=== PATIENT | female | born 1980 | race American Indian/Alaskan Native ===

== ENCOUNTER 2017-05-12 20:53 | Inpatient (IN) | payer MEDICAID ==
[2017-05-12] MEDS ORDERED: Sodium Chloride 0.9% 1,000 ML IV ONE (21:19)
--- NOTE | 2017-05-12 21:21 | C.PDOC ---
History Of Present Illness 36 yo female, no prior hx, presents wtih abdominal pain/shoemaker/n/v. as per pt, started 3 hours ago. no fevers, no urianry changes, pt states she has irregular periods. pain worse to suprpubic region. Time Seen by Provider: 05/12/17 21:15 Chief Complaint (Nursing): Abdominal Pain Past Medical History Reviewed: Historical Data, Nursing Documentation, Vital Signs Vital Signs: Last Vital Signs Temp 97.4 F L 05/13/17 07:00 Pulse 61 05/13/17 07:00 Resp 20 05/13/17 07:00 BP 110/66 05/13/17 07:00 Pulse Ox 99 05/13/17 07:00 Family History: States: Unknown Family Hx - Social History Hx Alcohol Use: No Hx Substance Use: No - Immunization History Hx Tetanus Toxoid Vaccination: No Hx Influenza Vaccination: No Hx Pneumococcal Vaccination: No Review Of Systems Except As Marked, All Systems Reviewed And Found Negative. Gastrointestinal: Positive for: Nausea, Vomiting, Abdominal Pain Neurological: Positive for: Headache Physical Exam - Physical Exam Appears: Well, No Acute Distress, Other (on phone in nad) Skin: Normal Color, Warm, Dry Eye(s): bilateral: Normal Inspection, PERRL, EOMI Nose: Normal Throat: Normal Neck: Normal Cardiovascular: Rhythm Regular Respiratory: Normal Breath Sounds Gastrointestinal/Abdominal: Normal Exam, Soft, Tenderness (mild), No Guarding, No Rebound Back: Normal Inspection Extremity: Normal ROM Neurological/Psych: Oriented x3, Normal Speech, Normal Cognition, Normal Cranial Nerves, No Cerebellar Signs, Normal Motor, Normal Sensation ED Course And Treatment - Laboratory Results Result Diagrams: 05/12/17 21:36 05/12/17 21:36 O2 Sat by Pulse Oximetry: 100 (RA) Pulse Ox Interpretation: Normal - CT Scan/US CT Abd with contrast Other Rad Studies (CT/US): Interpreted By Me, Read By Radiologist CT/US Interpretation: EXAM: CT Abdomen and Pelvis With Intravenous Contrast. CLINICAL HISTORY: 36 years old, female; Pain; Abdominal pain; Flank; Left lower quadrant (llq); Additional info: Lower. abd pain. TECHNIQUE: Axial computed tomography images of the abdomen and pelvis with intravenous contrast. This CT. exam was performed using one or more of the following dose reduction techniques: automated. exposure control, adjustment of the mA and/or kV according to patient size, and/or use of iterative. reconstruction technique. Coronal and sagittal reformatted images were created and reviewed. CONTRAST: 100 mL of visipaque 320 administered intravenously. EXAM DATE/TIME: Exam ordered 05/12/2017 9:54 PM. COMPARISON: No relevant prior studies available. FINDINGS: Lower thorax: No acute findings. ABDOMEN: Liver: Unremarkable. No mass. Gallbladder and bile ducts: Unremarkable. No calcified stones. No ductal dilation. Pancreas: Unremarkable. No mass. No ductal dilation. Spleen: Unremarkable. No splenomegaly. Adrenals: Unremarkable. No mass. Kidneys and ureters: As seen in series 3 image 143, there is a 4 mm left pelvic calculus. questionably at the left ureterovesical junction, and correlation to evaluate for possible. renal/genitourinary causes of symptoms suggested. However, there is no hydronephrosis in either. kidney. No other findings suspicious for ureteral stones are seen noting that punctate stones or. noncalcified stones may not be well seen on CT. There is an incidental finding of compression of the. left renal vein as it passes posterior to the superior mesenteric artery. The bladder is questionably. slightly thickwalled, please correlate for urinary tract infection. Stomach and bowel: There are no findings to suggest bowel obstruction. Fluid-filled normal caliber. small bowel is seen, this is a nonspecific finding but can sometimes reflect an enteritis. There is. formed fecal content in the colon. The colon is largely collapsed. Paucity of abdominal fat and pelvic. ascites do somewhat limit evaluation for possibility of diverticulitis with no specific findings that would. suggest acute diverticulitis. Appendix: No findings to suggest acute appendicitis. PELVIS: Bladder: See above. Reproductive: There are cystic findings in the left adnexa including possibly 2 rim-enhancing. findings. These are likely functional but may contribute to the patient's symptoms. As is true for all. female patients of reproductive age, correlation with beta hCG and consideration of gynecologic. causes of symptoms is recommended. ABDOMEN and PELVIS: Intraperitoneal space: There is moderate pelvic ascites, favored to be increased above typical for a. female patient of reproductive age. Bones/ joints: No acute fracture. No dislocation. Soft tissues: Unremarkable. Vasculature: See above. Lymph nodes: Unremarkable. No enlarged lymph nodes. IMPRESSION: As is true for all female patients of reproductive age, correlation with beta hCG and consideration of. gynecologic causes of symptoms is recommended. In particular, pelvic ascites and presence of. multiple likely functional findings in the left adnexa which may relate to the patient's symptoms. Questionable genitourinary findings, correlation for infection and possibility of left ureteral calculus. suggested. Medical Decision Making Medical Decision Making: r/o uti, viral syndrome. pt well appearing, neuro intact. no thunderclap features . labs pending. 950: noted anemia. pt denies vb or rectal bleeding. refuses rectal exm. 1110: vrad reading shows possible 4mm uvj stone. pt with persistent pain. urine shows likely infection. case discussed with dr baer, requests admission. pt may need urology eval/intervention as pt with infected stone. Disposition - Disposition Disposition: HOSPITALIZED Disposition Time: 23:20 Condition: STABLE - Clinical Impression Clinical Impression: UTI (urinary tract infection), Kidney stone, Anemia Decision To Admit - Pt Status Changed To: Hospital Disposition Of: Inpatient - Admit Certification Admit to Inpatient:: After my assessment, the patient will require hospitalization for at least two midnights. This is because of the severity of symptoms shown, intensity of services needed, and/or the medical risk in this patient being treated as an outpatient. - InPatient: Physician Admission Certification:: pt with uti and kidney stone. will need eval for passage of stone. - . Bed Request Type: Regular Admitting Physician: Eddie Baer Patient Diagnosis: UTI (urinary tract infection), Kidney stone, Anemia
[2017-05-12] MEDS ORDERED: Sodium Chloride 0.9% 1,000 ML ONE (21:40)
[2017-05-12 21:41] LABS: BASO # 0.1 K/uL (0.0-0.2); BASO % 1.2 % (0.0-2.0); EOS # 0.1 K/uL (0.0-0.7); EOS % 1.3 % (0.0-4.0); HEMOGLOBIN 9.7 g/dL (11.0-16.0); LYMPH # 1.6 K/uL (1.0-4.3); LYMPH % 20.5 % (20.0-40.0); MEAN CELL VOLUME 66.6 fL (81.0-99.0); MEAN CORPUSCULAR HEMOGLOBIN 20.6 pg (27.0-31.0); MEAN CORPUSCULAR HGB CONC 30.9 g/dL (33.0-37.0); MEAN PLATELET VOLUME 9.1 fL (7.2-11.7); MONO # 0.7 K/uL (0.0-0.8); MONO % 9.2 % (0.0-10.0); NEUT # 5.3 K/uL (1.8-7.0); NEUT % 67.8 % (50.0-75.0); NRBC % 0.1 % (0.0-2.0); RBC 4.73 Mil/uL (3.80-5.20); WHITE BLOOD COUNT 7.8 K/uL (4.8-10.8)
[2017-05-12 21:48] LABS: ALBUMIN 3.9 g/dL (3.5-5.0); PROTHROMBIN TIME 11.4 SECONDS (9.7-12.2)
[2017-05-12 21:51] LABS: ALB/GLOB RATIO 1.1 (1.0-2.1); AST/SGOT 19 U/L (14-36); BLOOD UREA NITROGEN 9 mg/dL (7-17); GFR AFRICAN-AMERICAN > 60; GFR NON-AFRICAN AMERICAN > 60
[2017-05-12 21:52] LABS: ALT/SGPT 10 U/L (9-52); CALCIUM 8.7 mg/dl (8.6-10.4); LIPASE 70 U/L (23-300)
[2017-05-12 21:53] LABS: HCG,QUALITATIVE URINE NEGATIVE (NEGATIVE)
[2017-05-12] MEDS ORDERED: Iodixanol 320 MG/ML 100 ML BOTTLE IV ONE (22:02)
[2017-05-12 22:03] LABS: SQUAMOUS EPITHIAL 40 /hpf (0-5); URINE BACTERIA FEW (<OCC); URINE BILIRUBIN NEGATIVE (NEGATIVE); URINE CLARITY Hazy (Clear); URINE COLOR Yellow (YELLOW); URINE GLUCOSE (UA) NORMAL (Normal); URINE LEUKOCYTE ESTERASE 3+ Leu/uL (Negative); URINE NITRATE NEGATIVE (NEGATIVE); URINE PROTEIN NEGATIVE (NEGATIVE); URINE UROBILINOGEN NORMAL mg/dL (0.2-1.0)
[2017-05-12 22:04] LABS: URINE BLOOD TRACE (NEGATIVE)
[2017-05-12] MEDS ORDERED: cefTRIAXone IV 1 gm in Dextros 50 ML IVPB ONE (22:48)
[2017-05-13] MEDS: Dextrose 5%/0.45% NS 1,000 ML IV SCH ×4 (00:07→19:00)
--- NOTE | 2017-05-13 12:39 | CT ---
CT abdomen and pelvis History lower abdominal pain. Comparison: None available. Technique: Multiple contiguous axial images were performed through the abdomen and pelvis with the use of intravenous contrast. Subsequently, sagittal and coronal reformatted images were obtained. This CT exam was performed using one or more of the following dose reduction techniques: Automated exposure control, adjustment of the mA and/or kV according to patient size, and/or use of iterative reconstruction technique. Findings: Lung yoder are clear. Liver and gallbladder are preserved. Pancreas is preserved. Spleen is preserved. Adrenals are preserved. 4 millimeter left renal calculus questionably at the left ureterovesicular junction best seen series 3, image 143. No gross hydronephrosis. Incidental finding of compression of the left renal vein as it passes posterior to the superior mesenteric artery. Urinary bladder is questionably slightly thick-walled. Please correlate for urinary tract infection. No findings to suggest bowel obstruction. Fluid-filled small bowel which is nonspecific but may represent an enteritis. Fecal retention in the colon. Colon is largely collapsed. Paucity of abdominal fat and pelvic ascites due somewhat limit evaluation for possibility of diverticulitis with no specific findings that would suggest acute diverticulitis. No findings to suggest acute appendicitis. Cystic findings in the left adnexa possibly 2 rim enhancing foci. These may represent functional ovarian cysts. In female patients of reproductive age, correlation with beta HCG in consideration of gynecological cause of symptoms is recommended. Moderate pelvic ascites. Impression: 1. Given the patient's stated age, correlation with beta HCG levels and consideration of gynecological causes of symptoms is recommended. In particular, pelvic ascites and presence of multiple likely functional findings in the left adnexa may relate to patient's symptoms. Clinical correlation. 2. Questionable genitourinary findings. Correlate for infection and or possibility of left ureteral calculus suggested. Clinical correlation. Additional findings as above. These findings were preliminarily reported at 11:10 p.m. on 05/12/[address] Chelle Levy from [employer].
--- NOTE | 2017-05-13 18:24 | RAD ---
Abdomen four views History: Pelvic calculus. Comparison: CT scan dated 05/12/2017 Findings: Again identified is a punctate radiopaque calculus seen at the level of the left hemipelvis. Rounded metallic density projects over the midline lower pelvis. Clinical correlation. Moderate fecal retention in the colon. No evidence of gross bowel obstruction. Osseous structures are grossly preserved. Punctate radiopaque density seen projecting over the medial right lower lobe likely represents vessel on end. Impression: Again identified is a punctate radiopaque calculus seen at the level of the left hemipelvis. Rounded metallic density projects over the midline lower pelvis. Clinical correlation. Moderate fecal retention in the colon.
[2017-05-13] MEDS: cefTRIAXone IV 1 gm in Dextros 50 ML IVPB SCH (21:20)
[2017-05-14] MEDS: Dextrose 5%/0.45% NS 1,000 ML IV SCH ×2 (05:51→15:45)
[2017-05-14] MEDS: cefTRIAXone IV 1 gm in Dextros 50 ML IVPB SCH (09:24)
[2017-05-15] MEDS: Dextrose 5%/0.45% NS 1,000 ML IV SCH ×4 (01:45→22:28)
--- NOTE | 2017-05-15 07:51 | CP.PCM.PN ---
Subjective - Date & Time of Evaluation Date of Evaluation: 05/15/17 Time of Evaluation: 09:40 - Subjective Subjective: PGY 2 Medicine Note- Dr. Fernandez's service CC: LLQ abdominal pain HPI: 36 year old patient with chief complaint of LLQ abdominal pain which first began Monday night. Pt states that she has never had the pain before. It is exacerbated by movements. She admits to hematuria. She denies subjective fevers or chills, nausea, vomiting, diarrhea, constipation, chest pain, paresthesias or headaches at this time. PMHX- none PSHx- none Fam HX- Maternal grandparents and aunt have all had kidney stones; Mom- asthma Social Hx- denies ever smoking, drinking alcohol or illicit drug use Meds- None Allergies- NKDA Pt seen and examined in no acute distress. Patient with abdominal pain that appears to be exacerbated by movement. She admits to hematuria. She denies any of the other associated symptoms as noted above. Objective - Vital Signs/Intake and Output Vital Signs (last 24 hours): Temp Pulse Resp BP Pulse Ox 98.2 F 69 20 100/57 L 98 05/15/17 00:00 05/15/17 00:00 05/15/17 00:00 05/15/17 00:00 05/15/17 00:00 Intake and Output: 05/15/17 05/15/17 06:59 18:59 Intake Total 2200 Balance 2200 - Medications Medications: Current Medications Ceftriaxone Sodium (Rocephin Iv 1 Gm Duplex) 50 mls @ 100 mls/hr IVPB DAILY [facility] Last Admin: 05/14/17 09:24 Dose: 100 mls/hr Dextrose/Sodium Chloride (Dextrose 5%/0.45% Ns 1000 Ml) 1,000 mls @ 100 mls/hr IV .Q10H [facility] Last Admin: 05/15/17 04:00 Dose: 100 mls/hr Ketorolac Tromethamine (Toradol) 30 mg IVP Q8 PRN PRN Reason: Pain, severe (8-10) Last Admin: 05/14/17 22:02 Dose: 30 mg Tamsulosin HCl (Flomax) 0.4 mg PO DAILY [facility] Last Admin: 05/14/17 09:25 Dose: 0.4 mg - Labs Labs: PT 11.4 SECONDS (9.7-12.2) 05/12/17 21:36 INR 1.0 05/12/17 21:36 APTT 27 SECONDS (21-34) 05/12/17 21:36 - Constitutional Appears: Non-toxic, No Acute Distress - Head Exam Head Exam: ATRAUMATIC, NORMAL INSPECTION - Eye Exam Eye Exam: EOMI, Normal appearance Pupil Exam: NORMAL ACCOMODATION, PERRL - ENT Exam ENT Exam: Mucous Membranes Moist, Normal Exam - Neck Exam Neck Exam: Full ROM, Normal Inspection - Respiratory Exam Respiratory Exam: Clear to Ausculation Bilateral, NORMAL BREATHING PATTERN - Cardiovascular Exam Cardiovascular Exam: +S1, +S2 - GI/Abdominal Exam GI & Abdominal Exam: Soft, Tenderness (LLQ), Normal Bowel Sounds. absent: Firm , Guarding, Rigid - Extremities Exam Extremities Exam: Full ROM, Normal Capillary Refill - Back Exam Back Exam: NORMAL INSPECTION - Neurological Exam Neurological Exam: Alert, Awake, CN II-XII Intact, Oriented x3 - Psychiatric Exam Psychiatric exam: Normal Affect, Normal Mood - Skin Skin Exam: Dry, Normal Color, Warm Assessment and Plan (1) Nephrolithiasis Assessment & Plan: Urology on the case- Dr. Nicholas. Flomax daily F/U XRAY of abdomen F/U recommendations Status: Acute (2) Renal colic Assessment & Plan: D 5-0.45% NS Continue to monitor Morphine 1 mg IV Q6 PRN Status: Acute (3) UTI (urinary tract infection) Assessment & Plan: UC-positive for e.coli Ceftriaxone on board started 05/13/17 Status: Acute (4) Anemia Assessment & Plan: Hgb 8.6 Continue to monitor. Patient may require transfusions. Status: Acute (5) Prophylactic measure Assessment & Plan: SCDS GI Prophylaxis not indicated at this time. Status: Acute
[2017-05-15] MEDS: cefTRIAXone IV 1 gm in Dextros 50 ML IVPB SCH (10:05)
[2017-05-15 11:58] LABS: BASO % 0.9 % (0.0-2.0); EOS # 0.2 K/uL (0.0-0.7); EOS % 3.7 % (0.0-4.0); HEMOGLOBIN 8.6 g/dL (11.0-16.0); LYMPH # 1.2 K/uL (1.0-4.3); LYMPH % 21.8 % (20.0-40.0); MEAN CORPUSCULAR HEMOGLOBIN 20.6 pg (27.0-31.0); MEAN CORPUSCULAR HGB CONC 30.8 g/dL (33.0-37.0); MONO # 0.4 K/uL (0.0-0.8); MONO % 8.4 % (0.0-10.0); NEUT # 3.5 K/uL (1.8-7.0); NEUT % 65.2 % (50.0-75.0); RBC 4.17 Mil/uL (3.80-5.20); RED CELL DISTRIBUTION WIDTH 21.1 % (11.5-14.5); WHITE BLOOD COUNT 5.3 K/uL (4.8-10.8)
[2017-05-15 12:09] LABS: ALBUMIN 3.2 g/dL (3.5-5.0)
[2017-05-15 12:12] LABS: ALB/GLOB RATIO 1.1 (1.0-2.1); ALT/SGPT 20 U/L (9-52); AST/SGOT 15 U/L (14-36); BLOOD UREA NITROGEN 7 mg/dL (7-17); GFR AFRICAN-AMERICAN > 60; GFR NON-AFRICAN AMERICAN > 60
[2017-05-15 12:13] LABS: CALCIUM 8.4 mg/dl (8.6-10.4)
--- NOTE | 2017-05-15 12:32 | CP.PCM.CON ---
History of Present Illness - History of Present Illness History of Present Illness: PLEASE SEE DICTATED REPORT THANK YOU YS Past Patient History - Past Medical History & Family History Past Medical History?: Yes - Past Social History Smoking Status: Unknown If Ever Smoked - CARDIAC Hx Cardiac Disorders: No - PULMONARY Hx Respiratory Disorders: No - NEUROLOGICAL Hx Neurological Disorder: No - HEENT Hx HEENT Problems: No - RENAL Hx Chronic Kidney Disease: No - ENDOCRINE/METABOLIC Hx Endocrine Disorders: No - HEMATOLOGICAL/ONCOLOGICAL Hx Blood Disorders: No - INTEGUMENTARY Hx Dermatological Problems: No - MUSCULOSKELETAL/RHEUMATOLOGICAL Hx Musculoskeletal Disorders: No Hx Falls: No - GASTROINTESTINAL Hx Gastrointestinal Disorders: No - GENITOURINARY/GYNECOLOGICAL Hx Genitourinary Disorders: No - PSYCHIATRIC Hx Substance Use: No - SURGICAL HISTORY Hx Surgeries: No - ANESTHESIA Hx Anesthesia: No Hx Anesthesia Reactions: No Hx Malignant Hyperthermia: No Has any member of the family had a problem w/ anesthesia?: No Meds Allergies/Adverse Reactions: Allergies Allergy/AdvReac Type Severity Reaction Status Date / Time No Known Allergies Allergy Verified 05/12/17 21:14 - Medications Medications: Current Medications Ceftriaxone Sodium (Rocephin Iv 1 Gm Duplex) 50 mls @ 100 mls/hr IVPB DAILY [facility] Last Admin: 05/15/17 10:05 Dose: 100 mls/hr Dextrose/Sodium Chloride (Dextrose 5%/0.45% Ns 1000 Ml) 1,000 mls @ 100 mls/hr IV .Q10H [facility] Last Admin: 05/15/17 04:00 Dose: 100 mls/hr Ketorolac Tromethamine (Toradol) 30 mg IVP Q8 PRN PRN Reason: Pain, severe (8-10) Last Admin: 05/15/17 10:13 Dose: 30 mg Tamsulosin HCl (Flomax) 0.4 mg PO DAILY [facility] Last Admin: 05/15/17 10:05 Dose: 0.4 mg Results - Vital Signs Recent Vital Signs: Last Vital Signs Temp 98.3 F 05/15/17 07:48 Pulse 67 05/15/17 07:48 Resp 20 05/15/17 07:48 BP 103/60 05/15/17 07:48 Pulse Ox 100 05/15/17 07:48 - Labs Result Diagrams: 05/16/17 07:05 05/16/17 07:05 Labs: Laboratory Results - last 24 hr 05/15/17 05/15/17 11:49 11:49 WBC 5.3 RBC 4.17 Hgb 8.6 L Hct 27.9 L MCV 67.0 L MCH 20.6 L MCHC 30.8 L RDW 21.1 H Plt Count 177 MPV 9.0 Neut % (Auto) 65.2 Lymph % (Auto) 21.8 Cuming % (Auto) 8.4 Eos % (Auto) 3.7 Baso % (Auto) 0.9 Neut # 3.5 Lymph # 1.2 Cuming # 0.4 Eos # 0.2 Baso # 0.0 Sodium 139 Potassium 3.9 Chloride 110 H Carbon Dioxide 23 Anion Gap 10 BUN 7 Creatinine 0.8 Est GFR ( Amer) > 60 Est GFR (Non-Af Amer) > 60 Random Glucose 86 Calcium 8.4 L Phosphorus 2.6 Magnesium 2.0 Total Bilirubin 0.4 AST 15 ALT 20 Alkaline Phosphatase 41 Total Protein 6.2 L Albumin 3.2 L Globulin 3.0 Albumin/Globulin Ratio 1.1 Assessment & Plan - Assessment and Plan (Free Text) Assessment: IMP: L RENAL COLIC, L DISTAL URETERAL CALCULUS UTI ANEMIA - Date & Time Date: 05/15/17 Time: 12:10
--- NOTE | 2017-05-16 07:10 | CP.PCM.PN ---
Subjective - Date & Time of Evaluation Date of Evaluation: 05/16/17 Time of Evaluation: 09:11 - Subjective Subjective: PGY 2 Medicine Note- Dr. Fernandez's service Pt seen and examined in no acute distress. Patient with mild LLQ. Patient denied radiation of pain . Patient for cystoscopy today with stent placed. Patient tolerated the procedure. Pain controlled. Per Dr. Nicholas ( Urology), no stone was noted in the ureters. Patient's pain likely secondary to UTI. Patient cleared for discharge home per Dr. Nicholas with recommendations for follow up. Pt denied subjective fevers or chills, nausea, vomiting, diarrhea or constipation. Objective - Vital Signs/Intake and Output Vital Signs (last 24 hours): Temp Pulse Resp BP Pulse Ox 97.7 F 67 20 104/58 L 100 05/16/17 00:00 05/16/17 00:00 05/16/17 00:00 05/16/17 00:00 05/16/17 00:00 Intake and Output: 05/16/17 05/16/17 06:59 18:59 Intake Total 1050 Balance 1050 - Medications Medications: Current Medications Ceftriaxone Sodium (Rocephin Iv 1 Gm Duplex) 50 mls @ 100 mls/hr IVPB DAILY [facility] Last Admin: 05/15/17 10:05 Dose: 100 mls/hr Morphine Sulfate (Morphine) 1 mg IV Q6 PRN PRN Reason: Pain, moderate (4-7) Tamsulosin HCl (Flomax) 0.4 mg PO DAILY [facility] Last Admin: 05/15/17 10:05 Dose: 0.4 mg - Labs Labs: 05/15/17 11:49 05/15/17 11:49 PT 11.4 SECONDS (9.7-12.2) 05/12/17 21:36 INR 1.0 05/12/17 21:36 APTT 27 SECONDS (21-34) 05/12/17 21:36 - Constitutional Appears: Non-toxic, No Acute Distress - Head Exam Head Exam: ATRAUMATIC, NORMAL INSPECTION, NORMOCEPHALIC - Eye Exam Eye Exam: EOMI, Normal appearance, PERRL Pupil Exam: NORMAL ACCOMODATION, PERRL - ENT Exam ENT Exam: Mucous Membranes Moist, Normal Exam - Neck Exam Neck Exam: Full ROM - Respiratory Exam Respiratory Exam: NORMAL BREATHING PATTERN. absent: Wheezes - Cardiovascular Exam Cardiovascular Exam: +S1, +S2 - GI/Abdominal Exam GI & Abdominal Exam: Soft, Tenderness (LLQ), Normal Bowel Sounds. absent: Firm , Guarding - Extremities Exam Extremities Exam: Full ROM, Normal Capillary Refill, Normal Inspection - Back Exam Back Exam: Full ROM - Neurological Exam Neurological Exam: Alert, Awake, CN II-XII Intact, Oriented x3 - Psychiatric Exam Psychiatric exam: Normal Affect, Normal Mood - Skin Skin Exam: Dry, Intact, Normal Color, Warm Assessment and Plan (1) Nephrolithiasis Status: Ruled-out (2) Renal colic Status: Acute (3) UTI (urinary tract infection) Status: Acute (4) Anemia Status: Acute (5) Prophylactic measure Status: Acute - Assessment and Plan (Free Text) Assessment: (1) Nephrolithiasis Assessment & Plan: Urology on the case- Dr. Nicholas. Cystoscopy findings- No stone. Pain likely secondarily due to UTI. Flomax daily F/U XRAY of abdomen. F/U recommendations Status: Acute (2) Renal colic Assessment & Plan: D 5-0.45% NS Continue to monitor Morphine 1 mg IV Q6 PRN Status: Acute (3) UTI (urinary tract infection) Assessment & Plan: UC-positive for e.coli Ceftriaxone on board started 05/13/17 Florastor 250 mg PO BID Status: Acute (4) Anemia Assessment & Plan: Hgb Continue to monitor. Patient may require transfusions. Status: Acute (5) Prophylactic measure Assessment & Plan: SCDS GI Prophylaxis not indicated at this time. Status: Acute Discharge planning: Patient is medically cleared for discharge per Dr. Fernandez. Patient to follow up in Dr. Nicholas's office in the next few days for removal of stents. Patient should call to make an appointment. Patient should follow up with primary medical doctor within one week. Patient to begin antibiotic Levaquin 500 mg by mouth daily ( 1 week) and then continue Florastor ( probiotic) 250 mg PO twice daily for one week. Patient should wait at least one hour after taking antibiotic to take the Florastor ( probiotic). Patient should take Flomax 0.4 mg once a day as well. If symptoms return, go to the Emergency room. Instructions explained to patient who is aware. Management per Dr. Fernandez
[2017-05-16 07:19] LABS: BASO # 0.1 K/uL (0.0-0.2); BASO % 0.9 % (0.0-2.0); EOS # 0.1 K/uL (0.0-0.7); EOS % 2.5 % (0.0-4.0); HEMOGLOBIN 8.6 g/dL (11.0-16.0); LYMPH # 1.4 K/uL (1.0-4.3); LYMPH % 25.4 % (20.0-40.0); MEAN CORPUSCULAR HEMOGLOBIN 20.8 pg (27.0-31.0); MEAN CORPUSCULAR HGB CONC 31.1 g/dL (33.0-37.0); MEAN PLATELET VOLUME 8.7 fL (7.2-11.7); MONO # 0.5 K/uL (0.0-0.8); MONO % 9.5 % (0.0-10.0); NEUT # 3.3 K/uL (1.8-7.0); NEUT % 61.7 % (50.0-75.0); RBC 4.11 Mil/uL (3.80-5.20); RED CELL DISTRIBUTION WIDTH 20.9 % (11.5-14.5); WHITE BLOOD COUNT 5.3 K/uL (4.8-10.8)
[2017-05-16 07:20] LABS: ALT/SGPT 23 U/L (9-52); AST/SGOT 13 U/L (14-36); BLOOD UREA NITROGEN 9 mg/dL (7-17); GFR AFRICAN-AMERICAN > 60; GFR NON-AFRICAN AMERICAN > 60
[2017-05-16 07:21] LABS: CALCIUM 8.2 mg/dl (8.6-10.4); MAGNESIUM 1.9 mg/dL (1.6-2.3)
[2017-05-16] MEDS ORDERED: Midazolam 2 MG/2 ML VIAL ONE (09:10)
[2017-05-16] MEDS ORDERED: Propofol 10 mg/ml Inj (20 ML) ONE ×2 (09:10→09:13)
[2017-05-16] MEDS ORDERED: cefTRIAXone IV 1 gm in Dextros 50 ML IVPB ONE (09:18)
[2017-05-16] MEDS ORDERED: Lidocaine 2% Jelly (Uro-Jet) ONE (09:18)
[2017-05-16] MEDS ORDERED: Iohexol 240 (50 ml) ONE (09:18)
--- NOTE | 2017-05-16 10:00 | PCM.SURG1 ---
Surgeon's Initial Post Op Note - Surgeon's Notes Surgeon: Jayla HILLMAN Supply Tech: NONE Type of Anesthesia: General LMA Pre-Operative Diagnosis: L RENAL COLIC, UROLITHIASIS Operative Findings: NO URETERAL CALCULUS Post-Operative Diagnosis: SAME Operation Performed: CYSTO, L URETEROSCOPY, RTG PYELOGRAM, STENT INSERTION, EUA Specimen/Specimens Removed: URINE Estimated Blood Loss: EBL {In ML}: 0 Post-Op Condition: Good Date of Surgery/Procedure: 05/16/17 Time of Surgery/Procedure: 09:50
[2017-05-16] MEDS: HYDROmorphone 0.5 mg/0.5 ml ISec IVP PRN ×2 (10:10→19:12)
[2017-05-16] MEDS ORDERED: HYDROmorphone 0.5 mg/0.5 ml ISec ONE (10:10)
[2017-05-16] MEDS: cefTRIAXone IV 1 gm in Dextros 50 ML IVPB SCH ×2 (10:49→11:42)
[2017-05-16] MEDS: Saccharomyces Boulardi 250 mg Cap PO SCH ×3 (10:49→22:27)
--- NOTE | 2017-05-16 16:05 | RAD ---
PROCEDURE: Intraoperative Fluoroscopy. HISTORY: LT. URETER CALCULI FINDINGS: Fluoroscopic assistance was provided for retrograde and stent placement. Please refer to the operative report from
[2017-05-16 16:57] VITALS: RESP 20
[2017-05-17 01:50] VITALS: O2SAT 97
[2017-05-17 08:29] VITALS: BP 112/63; PULSE 69; TEMP 98.4
[2017-05-17] MEDS: Saccharomyces Boulardi 250 mg Cap PO SCH (09:31)
[2017-05-17] MEDS: cefTRIAXone IV 1 gm in Dextros 50 ML IVPB SCH (09:31)
--- NOTE | 2017-05-17 10:43 | RAD ---
HISTORY: nephrolithiasis COMPARISON: Lopez in made with CT scan of the abdomen and pelvis dated 05/12/2017 FINDINGS: BOWEL: Moderate amount of stool seen throughout the cecum ascending and proximal transverse colon consistent with mild fecal retention. BONES: Normal. OTHER FINDINGS: In situ left ureteral stent. Tiny calcific density overlying the right true pelvis could represent small calcified pelvic phlebolith. IMPRESSION: In situ left ureteral stent. Findings suggest mild constipation.
--- NOTE | 2017-05-17 14:29 | CP.PCM.PN ---
Subjective - Date & Time of Evaluation Date of Evaluation: 05/17/17 Time of Evaluation: 07:19 - Subjective Subjective: PGY 2 Medicine Note- Dr. Fernandez's service Pt seen and examined in no acute distress. Patient states that her pain is improved. Patient was to go home yesterday but stated that her pain was increased from earlier in the day. Patient was thus monitored overnight. Pt denied subjective fevers or chills, chest pain, palpitations, nausea, vomiting, diarrhea, dysuria or constipation. Objective - Vital Signs/Intake and Output Vital Signs (last 24 hours): Temp Pulse Resp BP Pulse Ox 98.4 F 69 20 112/63 97 05/17/17 08:28 05/17/17 08:28 05/17/17 08:28 05/17/17 08:28 05/17/17 08:28 Intake and Output: 05/17/17 05/17/17 06:59 18:59 Intake Total 240 Balance 240 - Labs Labs: 05/16/17 07:05 05/16/17 07:05 PT 11.4 SECONDS (9.7-12.2) 05/12/17 21:36 INR 1.0 05/12/17 21:36 APTT 27 SECONDS (21-34) 05/12/17 21:36 - Constitutional Appears: Non-toxic, No Acute Distress - Head Exam Head Exam: ATRAUMATIC, NORMAL INSPECTION, NORMOCEPHALIC - Eye Exam Eye Exam: EOMI, Normal appearance, PERRL Pupil Exam: NORMAL ACCOMODATION - ENT Exam ENT Exam: Mucous Membranes Moist - Neck Exam Neck Exam: Full ROM - Cardiovascular Exam Cardiovascular Exam: +S1, +S2 - GI/Abdominal Exam GI & Abdominal Exam: Soft, Tenderness (LLQ mildly tender, decreased from yesterday), Normal Bowel Sounds - Extremities Exam Extremities Exam: Full ROM, Normal Capillary Refill - Back Exam Back Exam: Full ROM, NORMAL INSPECTION - Neurological Exam Neurological Exam: Alert, Awake, CN II-XII Intact, Oriented x3 - Psychiatric Exam Psychiatric exam: Normal Affect, Normal Mood - Skin Skin Exam: Dry, Intact, Normal Color, Warm Assessment and Plan (1) Nephrolithiasis Status: Ruled-out (2) Renal colic Status: Acute (3) UTI (urinary tract infection) Status: Acute (4) Anemia Status: Acute (5) Prophylactic measure Status: Acute - Assessment and Plan (Free Text) Assessment: (1) Nephrolithiasis Assessment & Plan: Urology on the case- Dr. Nicholas. Cystoscopy findings- No stone. Pain likely secondarily due to UTI. Flomax daily F/U XRAY of abdomen. F/U recommendations Status: Acute (2) Renal colic Assessment & Plan: D 5-0.45% NS Continue to monitor Morphine 1 mg IV Q6 PRN Status: Acute (3) UTI (urinary tract infection) Assessment & Plan: UC-positive for e.coli Ceftriaxone on board started 05/13/17 Florastor 250 mg PO BID Status: Acute (4) Anemia Assessment & Plan: Hgb Continue to monitor. Patient may require transfusions. Status: Acute (5) Prophylactic measure Assessment & Plan: SCDS GI Prophylaxis not indicated at this time. Status: Acute Discharge planning: Patient is medically cleared for discharge per Dr. Fernandez. Patient to follow up in Dr. Nicholas's office in the next few days for removal of stents. Patient should call to make an appointment. Patient should follow up with primary medical doctor within one week. Patient to begin antibiotic Levaquin 500 mg by mouth daily and then continue Florastor ( probiotic) 250 mg PO twice daily. Patient should wait at least one hour after taking antibiotic to take the Florastor (probiotic). Patient should take Flomax 0.4 mg once a day as well. Patient may take Ultram 50 mg by mouth every 6 hours as needed for pain. If symptoms return, go to the Emergency room. Instructions explained to patient who is aware. All Management planning and orders per Dr. Fernandez
--- NOTE | 2017-05-31 08:46 | DS ---
The patient was admitted with complaint of abdominal pain, UTI, kidney stone. The patient has finished IV antibiotic. Urology evaluation, seen by Dr. Nicholas. The patient is showing at least gradual improvement and discharged to be followed as outpatient for kidney stone and UTI. Eddie Fernandez MD
== END 2017-05-17 13:30 | disposition home or self-care (01) | DRG 321 ==
LOC: C.ER 20:53 → C.3T 23:21
PROVIDERS: ADMIT Internal Medicine Pulmonary Disease; ATTEND Internal Medicine Pulmonary Disease
PROC: 0TJB8ZZ Inspection of Bladder, Via Natural or Artificial Opening Endoscopic (ICD-10-PCS; 2017-05-16)
PROC: BT1FZZZ Fluoroscopy of Left Kidney, Ureter and Bladder (ICD-10-PCS; principal; 2017-05-16 09:00)
DX: N39.0 Urinary tract infection, site not specified (principal); D64.9 Anemia, unspecified; R31.9 Hematuria, unspecified